=== PATIENT | male | born 1965 | race Caucasian/White ===

== ENCOUNTER 2023-02-10 11:02 | Day surgery (SDC) | payer OTHER, SELFPAY ==
[2023-02-10] VITALS (16 sets, daily range): BP systolic 157–188; BP diastolic 82–107; PULSE 46–71; RESP 10–25; TEMP 36.2–36.6; O2SAT 96–100; BMI 27.0
[2023-02-10 11:57] LABS: INR 1.03; Prothrombin Time 10.9 sec (9.0-11.6)
[2023-02-10 11:58] LABS: Partial Thromboplastin Time 28.6 sec (22.3-36.2)
[2023-02-10] MEDS: LACTATED RINGER'S SOLUTION 1,000 ML 50 ML IV (12:03)
[2023-02-10] MEDS: CEFAZOLIN SODIUM/DEXTROSE,ISO 1 GM/50 ML IV.SOLN IV (15:19)
--- NOTE | 2023-02-10 16:47 | PM.URSON ---
Urology Surgery Operative Note Operative Note Procedure Date: 02/10/23 Time Out Performed: yes Pre-op Diagnosis: right ureteral calculus and right renal calculi Post-op Diagnosis: same as pre-op Procedures performed: #1. Cystoscopy. #2. Rigid right ureteral dilation. #3. Right ureteroscopy. #4. Right pyeloscopy. #5. Holmium laser lithotripsy of hard right ureteral calculus. #6 stone basket extraction. #7 holmium laser lithotripsy of multiple right renal calculi. #8 placement of 6 Slovak variable length right ureteral stent Anesthesia: General-LMA Primary Surgeon: Jayme Ramirez Complications: non- Estimated blood loss (mL): 5 Findings: extremely hard ureteral and renal calculi. Specimens: ureteral calculus fragment Indications for Procedures: this gentleman had right ESWL back in early November of this year for a 6 mm right renal calculus. He never really passed fragments from the procedure. He suddenly experienced an obstructing proximal 6 mm right ureteral calculus recently. His CT scan showed that he also had a 3 mm ipsilateral renal calculus. He has been unable to pass the stone. He is desirous for cystoscopy stent placement and possible definitive ureteroscopic laser lithotripsy. He has signed an informed consent for these procedures after risks were explained in great detail. Some of these include bleeding, infection, anesthesia, striicture formation, damage to the ureter and possible need for further procedures to name a few. Detailed description of Procedure: The patient was brought to the operating room and placed on the operating room table in the supine position. SCDs were placed on the lower extremities and turned on and functioning during the entire case. Timeout was done by all parties in the room. We all agreed upon the patient's identification and the planned procedures for this patient. Genn. anesthesia was then administered. The patient was then repositioned into the modified dorsal lithotomy position. All pressure points were satisfactorily padded. Genitalia were sterilely prepped and draped in usual fashion.I started by passing a 22 Slovak Olympus cystoscope per urethra and into the bladder. Anterior urethra was normal. Prostatic urethra showed bilobar hypertrophy. He had a high median bar. Careful panendoscopy in the bladder showed no evidence of any tumors or stones. While using fluoroscopy I could see his stone at the L3 level. I then passed a Glidewire through the scope and cannulated the right ureter and guided up beyond the stone into the kidney. I then used a 8 and 10 Slovak rigid dilator to dilate the distal right ureter. I then removed the cystoscope and then passed a navigator 05/09 ureteral access sheath over the wire and further dilated the ureter. This sheath was passed up to the L5 level. The stylette and wire were then removed. I then passed a flexible ureteroscope into the access sheath and gained access into the ureter. I then ascended up to the stone and then passed a 200 ? holmium laser fiber through the scope and made contact with the stone. The stone was very dense and hard. I started at 6 W continuously. I was able to slowly fragment the stone into a couple pieces. One piece was extracted out and sent for stone analysis. The other pieces shot up into the kidney from the laser pulse. I then ascended further up the ureter and then went into the kidney and didn't pyeloscopy. I found the stone fragments and I then turned the setting of the laser to dusting. This was at 10 W continuously. I began dusting stone pieces. Again these pieces were very dense and took quite a bit of energy. I ultimately had to increase the power up to 15 W in order to get satisfactory dusting. I went through multiple calyceal systems in the mid and lower pole of the kidney and dusted several pieces of stone. Eventually, we did get a little bleeding which made her visibility become very poor. The procedure had to be terminated at this time. The scope was then removed. I then passed a Glidewire through the access sheath and into the kidney. I then removed the access sheath. I then backloaded the cystoscope over the wire and put it in the bladder. I then slid a 6 Slovak variable length ureteral stent over the wire up into the kidney. The wire was removed and there were good curls in the kidney and in the bladder. The bladder was drained of its contents. The scope was then removed. He was then transferred to a [place] bed and wheeled to PACU in stable condition. He'll be discharged to home later today with a prescription for Vesicare 10 mg daily and Keflex 500 mg daily. His stent will come out in a few weeks after checking a KUB x-ray.
[2023-02-10] MEDS: SOLIFENACIN SUCCINATE 10 MG TABLET PO (17:12)
--- NOTE | 2023-02-10 17:20 | PC.NURSE ---
VOIDED 100CC OF BLOOD TINGED URINE VIA URINAL
[2023-02-17 20:08] LABS: Calcium Oxalate Dihydrate 10 % (.); Calcium Oxalate Monohydrate 90 % (.)
== END 2023-02-10 17:50 | disposition home or self-care (01) ==
PROVIDERS: PCP Family Medicine; Visit Provider Urology
PROC: (CPT 52356; principal; 2023-02-10 12:50)
DX: N13.2 Hydronephrosis with renal and ureteral calculous obstruction (principal); I10 Essential (primary) hypertension; R31.9 Hematuria, unspecified
CPT/HCPCS: 52356; 36415; 76000; 82365; 85610; 85730; 99999; C1874; J2704